=== PATIENT | female | born 1970 | race Caucasian/White ===

== ENCOUNTER 2016-05-01 18:29 | Emergency (ER) | payer BC ==
[~2016-05-01] VITALS: Ht 175.3 cm; Wt 63.8 kg
[2016-05-01 18:35] VITALS: TEMP 36.8; Ht 175.3 cm; Wt 63.8 kg
[2016-05-01] MEDS ORDERED: SODIUM CHLORIDE 0.9% 1000ML 1,000 ML IV STA (19:48)
--- NOTE | 2016-05-01 19:58 | EMERGENCY ROOM VISIT NOTE ---
History Report prepared by [place]etano: Felix Arrieta Under the Supervision of: Dr. Felix Martin M.D. First contact with patient: 19:07 Chief Complaint: DIZZY Stated Complaint: DIZZY, ANXIOUS, POSSIBLE UTI, APPETITE LOSS, INSOM Nursing Triage Summary: Patient ambulatory to triage, states "I had a UTI on 04/15/16. I was treated with bactrim. I got bacterial vaginosis and was treated with Flagyl. I don't think I ever got over the UTI. Now, I have a bunch of other symptoms. I have no pain. I am anxious but I can't eat. I am not nauseated but food tastes awful and I can't swallow it. I feel like my body intermittent gets flushed. I feel very dizzy and I am very shaky." Patient denies any difficulty with swallowing she is just repulsed to food; no sob. History of Present Illness The patient is a 45 year old female who presents to the Emergency Room with complaints of persistent dizziness beginning about 4 days ago. She notes on April 08 she had a UTI and was treated with Bactrim which resolved the UTI. 6 days ago she was diagnosed with bacterial vaginosis after experiencing burning sensations, and was prescribed Flagyl by a comp field case manager at [facility]. Despite minor improvements, she notes experiencing other symptoms such as dry throat, food tasting bad, shakiness and anxiousness, difficulty falling and staying asleep and waking in a panic, flushing, and tremors. She has also been sweaty with hot flashes at times. She denies having any fever, headache, chest pain, shortness of breath, or rashes or bites. She also denies any suicidal ideations. The patient finished her Flagyl 4 days ago and denies consuming alcohol with it. She denies having any thyroid problems. Source of History: patient, spouse/significant other Onset: 4 days ago Position: other (global) Quality: other (dizzy) Timing: other (persistent) Associated Symptoms: No SOB, No chest pain, No fevers, No headache, No rash Note: The patient notes having dry throat, food tasting bad, shakiness and anxiousness , difficulty falling and staying asleep and waking in a panic, flushing, and tremors. She denies any recent bites. Review of Systems See HPI for pertinent positives & negatives. A total of 10 systems reviewed and were otherwise negative. Past Medical & Surgical Old medical records were reviewed. Nurse's notes were reviewed and I agree with. Denies any significant past medical history. Specifically denies diabetes or thyroid problems or anxiety or mental health problems Family History No pertinent family history stated. Social History Smoking Status: Former Smoker Alcohol Use: none Drug Use: none Current/Historical Medications Scheduled Diphenhydramine-Acetaminophen (Tylenol Pm), 2 TAB PO HS Scheduled PRN Ondansetron Hcl (Zofran), 4 MG PO DIRECTED PRN for Nausea Allergies Coded Allergies: No Known Allergies (Verified , 05/01/16) Physical Exam Vital Signs Date Time Temp Pulse Resp B/P Pulse Ox O2 Delivery O2 Flow Rate FiO2 05/01/16 22:27 79 18 141/82 98 Room Air 05/01/16 20:27 73 18 147/87 100 Room Air 05/01/16 18:35 36.8 92 16 157/89 100 Room Air Physical Exam General: Well developed well nourished in no acute distress, breathing comfortably on room air. Normal speech. Non-ill appearing, middle aged female, mildly anxious. HEENT: Normal cephalic atraumatic. Pupils are equal round and reactive to light. Extraocular movements are intact. Oropharynx is pink with moist mucous membranes. No swelling of the mouth lips or tongue. Neck: Supple with a midline trachea. No meningeal signs or stiffness, no JVD or bruits. No Stridor. Chest: Clear to auscultation bilaterally. No wheezes or rhonchi. No increased work of breathing. Heart: regular rate and rhythm. Abdomen: Soft nontender, nondistended without rebound guarding or rigidity. Extremities: No cyanosis clubbing or edema. No calf tenderness or assymetry Spine/Back. Non tender to palpation. No CVA tenderness Skin: Good turgor without rashes. Neurologic exam: Cranial nerves two through 12 are intact. Motor and sensation are intact and symmetrical throughout. Finger to nose intact; questionable slight tremor. Psych: Normal thought process and affect. Denies suicidal ideations Medical Decision & Procedures ER Provider Diagnostic Interpretation: CT results as stated below per my review and radiologist interpretation: CT HEAD WITHOUT CONTRAST (CT) FINDINGS: No intra or extra-axial mass lesions are visualized. There is no CT evidence of acute cortical infarction. There is no evidence of midline shift. There is no acute hemorrhage. No calvarial fractures are visualized. There is a small calcification in the region the left cavernous sinus. This is not felt to be of acute clinical significance. There is no evidence of pathologic ventricular dilatation. There is no evidence of acute sinusitis IMPRESSION: No acute intracranial findings Electronically signed by: Zaki Saab M.D. 05/01/2016 8:37 PM Dictated Date/Time: 05/01/2016 8:35 PM Laboratory Results 05/01/16 20:13 Red Blood Count 4.22, Mean Corpuscular Volume 85.8, Mean Corpuscular Hemoglobin 29.4, Mean Corpuscular Hemoglobin Concent 34.3, Mean Platelet Volume 8.9, Neutrophils (%) (Auto) 71.8, Lymphocytes (%) (Auto) 19.0, Monocytes (%) (Auto) 8.5, Eosinophils (%) (Auto) 0.3, Basophils (%) (Auto) 0.3, Neutrophils # (Auto) 5.34, Lymphocytes # (Auto) 1.41, Monocytes # (Auto) 0.63, Eosinophils # (Auto) 0.02, Basophils # (Auto) 0.02 05/01/16 20:13 Test 05/01/16 20:13 White Blood Count 7.43 K/uL (4.8-10.8) Red Blood Count 4.22 M/uL (4.2-5.4) Hemoglobin 12.4 g/dL (12.0-16.0) Hematocrit 36.2 % (37-47) Mean Corpuscular Volume 85.8 fL (80-100) Mean Corpuscular Hemoglobin 29.4 pg (25-34) Mean Corpuscular Hemoglobin Concent 34.3 g/dl (32-36) Platelet Count 316 K/uL (130-400) Mean Platelet Volume 8.9 fL (7.4-10.4) Neutrophils (%) (Auto) 71.8 % Lymphocytes (%) (Auto) 19.0 % Monocytes (%) (Auto) 8.5 % Eosinophils (%) (Auto) 0.3 % Basophils (%) (Auto) 0.3 % Neutrophils # (Auto) 5.34 K/uL (1.4-6.5) Lymphocytes # (Auto) 1.41 K/uL (1.2-3.4) Monocytes # (Auto) 0.63 K/uL (0.11-0.59) Eosinophils # (Auto) 0.02 K/uL (0-0.5) Basophils # (Auto) 0.02 K/uL (0-0.2) RDW Standard Deviation 41.2 fL (36.4-46.3) RDW Coefficient of Variation 13.1 % (11.5-14.5) Immature Granulocyte % (Auto) 0.1 % Immature Granulocyte # (Auto) 0.01 K/uL (0.00-0.02) Urine Color YELLOW Urine Appearance CLOUDY (CLEAR) Urine pH 5.5 (4.5-7.5) Urine Specific [place] 1.004 (1.000-1.030) Urine Protein NEG (NEG) Urine Glucose (UA) NEG (NEG) Urine Ketones 3+ (NEG) Urine Occult Blood 1+ (NEG) Urine Nitrite NEG (NEG) Urine Bilirubin NEG (NEG) Urine Urobilinogen NEG (NEG) Urine Leukocyte Esterase NEG (NEG) Urine WBC (Auto) 1-5 /hpf (0-5) Urine RBC (Auto) 0-4 /hpf (0-4) Urine Hyaline Casts (Auto) 1-5 /lpf (0-5) Urine Epithelial Cells (Auto) >30 /lpf (0-5) Urine Bacteria (Auto) 1+ (NEG) Anion Gap 14.0 mmol/L (3-11) Est Creatinine Clear Calc Drug Dose 97.3 ml/min Estimated GFR () 115.6 Estimated GFR (Non- 99.7 BUN/Creatinine Ratio 9.3 (10-20) Calcium Level 9.1 mg/dl (8.5-10.1) Total Bilirubin 0.9 mg/dl (0.2-1) Aspartate Amino Transf (AST/SGOT) 20 U/L (15-37) Alanine Aminotransferase (ALT/SGPT) 24 U/L (12-78) Alkaline Phosphatase 36 U/L (45-117) Total Protein 7.0 gm/dl (6.4-8.2) Albumin 4.1 gm/dl (3.4-5.0) Globulin 2.9 gm/dl (2.5-4.0) Albumin/Globulin Ratio 1.4 (0.9-2) Thyroid Stimulating Hormone (TSH) 1.070 uIu/ml (0.300-4.500) Human Chorionic Gonadotropin, Qual NEG (NEG) Lyme Disease IgG Antibody NEG (NEG) Lyme Disease IgM Antibody NEG (NEG) Laboratory studies as stated above per my review. Medications Administered Medications (Trade) Dose Ordered Sig/Denita Route Start Time Stop Time Status Last Admin Dose Admin Sodium Chloride (Nss 1000ml) 1,000 ml @ 500 mls/hr Q2H STAT IV 05/01/16 19:48 05/01/16 21:47 DC 05/01/16 20:41 500 MLS/HR Lorazepam (Ativan 1MG Home Pack) 1 homepack NOW STAT PO 05/01/16 22:26 05/01/16 22:27 DC 05/01/16 22:34 1 HOMEPACK ECG Indication: other (dizzy) Rate (beats per minute): 71 Rhythm: normal sinus Findings: no acute ischemic change, no ectopy, other (normal QT interval) Comparison ECG Date: no prior available ED Course 1938: Past medical records reviewed. The patient was evaluated in room C2A, and a complete history and physical examination were performed. 1947: Ordered NSS 1,000 ml @ 500 mls/hr IV. 2225: Ordered Lorazepam 1 homepack PO. 2229: Upon reevaluation, the patient is hemodynamically stable. I discussed the results and treatment plan with the patient. She verbalized agreement of the treatment plan. The patient was discharged home. Medical Decision Differentials include anxiety, thyroid disease, electrolyte or metabolic abnormality, and infection. This patient comes in as described above . she's had several different complaints she feels very anxious. She does not have a history of anxiety. She looks well on exam and has a normal neurologic exam. She has been having hot hot flashes and some this may be hormonal changes related. I did an extensive workup on her including EKG, multiple blood testing and CAT scan of her head. CAT scan of her head is unremarkable and has no acute intracranial process seen. EKG does not she has acute cardiac event or arrhythmia. She has no acute electrolyte or metabolic abnormalities. Her TSH is within normal limits which makes thyroid disease unlikely. Her Lyme titer was negative. She was feeling better after receiving IV hydration here. We will give her home pack of Ativan that she can use one-half a milligram every 12 hours if needed. She said she just wanted something for sleep tonight. I told her that she needs to have close follow-up with her regular doctor within the next couple days. She has an appointment apparently on Thursday or Thursday this coming week. She was warned that this could make her drowsy and do not take before drinking, driving, working and she should return if: Worsening of symptoms, fever or chills, any new problems or concerns. The patient and her are happy with the plan and she was discharged to home. Impression Primary Impression: Dizziness Additional Impression: Anxiety Scribe Attestation The scribe's documentation has been prepared under my direction and personally reviewed by me in its entirety. I confirm that the note above accurately reflects all work, treatment, procedures, and medical decision making performed by me. Departure Information Dispostion Home / Self-Care Referrals Flori Stevenson, (PCP) Patient Instructions Anxiety Ch, Lorazepam Oral tablet, My [facility], Perimenopause Additional Instructions You were seen in the ED today for dizziness, anxiety, hot flashes, loss of appetite Lab work was performed and showed no signs of infection, no anemia, and normal functioning kidneys, liver and thyroid. You were also negative for Lyme disease and your urine was negative for infection on urinalysis, although further cultures are pending. We believe these symptoms are from a combination of your previous antibiotics, perimenopausal symptoms and anxiety. For relief, we have prescribed a short duration course of Ativan. Please take 0.5mg (a half tablet) when significantly anxious or before bed. Please do not take more than half a tablet every 12 hours. As this medication has sedating effects, please do not drink alcohol, drive, or perform duties requiring a high degree of concentration. We recommend follow up with your PCP in 1 week's time for re-assessment, especially if the symtpoms do not improve, or worsen. You have been examined and treated today on an emergency basis only. This is not a substitute for, or an effort to provide, complete comprehensive medical care. It is impossible to recognize and treat all injuries or illnesses in a single emergency department visit. It is therefore important that you make a follow up with your physician for close monitoring. Return to the ED immediately for worsening or persistent dizziness, vomiting, headache, fevers, chest pains, difficulty breathing, black or bloody stools, slurred speech, numbness, weakness, visual changes, worsening of your condition , or as needed. Problem Qualifiers
[2016-05-01] MEDS ORDERED: ONDA4TAB46 PO (20:06)
[2016-05-01] MEDS ORDERED: DIPH-437 PO (20:06)
[2016-05-01 20:25] LABS: BASO % 0.3 %; BASO ABS # 0.02 K/uL (0-0.2); COMPLETE YES; EOS % 0.3 %; HEMATOCRIT 36.2 % (37-47); IG% 0.1 %; LYMPH ABS # 1.41 K/uL (1.2-3.4); MEAN CELL VOLUME 85.8 fL (80-100); MEAN CORPUSCULAR HEMOGLOBIN 29.4 pg (25-34); MEAN CORPUSCULAR HGB CONC 34.3 g/dl (32-36); MEAN PLATELET VOLUME 8.9 fL (7.4-10.4); MONO % 8.5 %; NEUT % 71.8 %; PLATELET COUNT 316 K/uL (130-400); RED BLOOD COUNT 4.22 M/uL (4.2-5.4); WHITE BLOOD COUNT 7.43 K/uL (4.8-10.8)
[2016-05-01 20:28] LABS: URINE APPEARANCE CLOUDY (CLEAR); URINE BILIRUBIN NEG (NEG); URINE COLOR YELLOW; URINE EPITHELIAL CELL AUTO >30 /lpf (0-5); URINE NITRITE NEG (NEG); URINE PH 5.5 (4.5-7.5); URINE SPECIFIC GRAVITY 1.004 (1.000-1.030); UROBILINOGEN NEG (NEG); ZZUR CULT IF INDIC CLEAN CATCH YES
[2016-05-01 20:37] LABS: MANUAL MICROSCOPIC REQUIRED? NO; REVIEW REQ? NO
--- NOTE | 2016-05-01 20:38 | DIAGNOSTIC IMAGING REPORT ---
CT HEAD WITHOUT CONTRAST (CT) CLINICAL HISTORY: headache, mild tremor COMPARISON STUDY: No previous studies for comparison. TECHNIQUE: Axial CT of the brain is performed from the vertex to the skull base. IV contrast was not administered for this examination. CT DOSE: 601.98 mGy.cm FINDINGS: No intra or extra-axial mass lesions are visualized. There is no CT evidence of acute cortical infarction. There is no evidence of midline shift. There is no acute hemorrhage. No calvarial fractures are visualized. There is a small calcification in the region the left cavernous sinus. This is not felt to be of acute clinical significance. There is no evidence of pathologic ventricular dilatation. There is no evidence of acute sinusitis IMPRESSION: No acute intracranial findings Electronically signed by: Zaki Saab M.D. 05/01/2016 8:37 PM Dictated Date/Time: 05/01/2016 8:35 PM
[2016-05-01 20:44] LABS: BUN/CREATININE RATIO 9.3 (10-20); CALCIUM 9.1 mg/dl (8.5-10.1); CREATININE 0.72 mg/dl (0.60-1.20); POTASSIUM 3.4 mmol/L (3.5-5.1)
[2016-05-01 21:16] LABS: ALB/GLOB RATIO 1.4 (0.9-2); THYROID STIMULATING HORMONE 1.07 uIu/ml (0.300-4.500)
--- NOTE | 2016-05-01 21:35 | EMERGENCY ROOM VISIT NOTE ---
History First contact with patient: 19:07 Chief Complaint: DIZZY Stated Complaint: DIZZY, ANXIOUS, POSSIBLE UTI, APPETITE LOSS, INSOM Nursing Triage Summary: Patient ambulatory to triage, states "I had a UTI on 04/15/16. I was treated with bactrim. I got bacterial vaginosis and was treated with Flagyl. I don't think I ever got over the UTI. Now, I have a bunch of other symptoms. I have no pain. I am anxious but I can't eat. I am not nauseated but food tastes awful and I can't swallow it. I feel like my body intermittent gets flushed. I feel very dizzy and I am very shaky." Patient denies any difficulty with swallowing she is just repulsed to food; no sob. History of Present Illness The patient is a 45 year old female who presents to the Emergency Room with complaints of anxiety, hot flushes, poor appetite Apr 08, 2016 - patient had dysuria, urgency, frequency - went to urgent care - dipstick positive fo WBC - treated for UTI with Bactrim Apr 22, 2016 - urgency and frequency resolved, but ongoing burning - economics instructor assessed - treated for bacterial vaginosis with flagyl Apr 28, 2016 - no improvement of burning - returned to urgent care - BV resolved , treated for yeast infection with 1 tablet of fluconazole Since Apr 27, 2016 however, burning improved, but not resolved. Also feeling multiple new symptoms including nausea without vomiting. Loss of appetite with awful taste in mouth. Feels like there is a knot in her stomach. Dry throat requiring excessive water intake to swallow food/pills. Anxious, dizzy. Insomnia with disturbed sleep, waking up in panic. Hot flashes followed by shaking/tremors. Tingling in head and hands. Decreased concentration and inability to focus at work. No fevers. No URI symptoms, Some postnasal drainage. She took 2 Tylenol this afternoon, and went to urgent care, where they prescribed her some Zofran. Patient denies thoughts of self harm or suicidal ideation. She denies new/ excessive stressors at home or work. She denies tobacco or alcohol use. She denies family history of mental health problems. Fam hx : HTN in mom and dad, dad had stoke, uterine and ovarian history in other relatives Review of Systems See HPI for pertinent positives and negatives. A total of ten systems were reviewed and were otherwise negative. Social History Smoking Status: Former Smoker Current/Historical Medications Scheduled Diphenhydramine-Acetaminophen (Tylenol Pm), 2 TAB PO HS Scheduled PRN Ondansetron Hcl (Zofran), 4 MG PO DIRECTED PRN for Nausea Allergies Coded Allergies: No Known Allergies (Verified , 05/01/16) Physical Exam Vital Signs Date Time Temp Pulse Resp B/P Pulse Ox O2 Delivery O2 Flow Rate FiO2 05/01/16 22:27 79 18 141/82 98 Room Air 05/01/16 20:27 73 18 147/87 100 Room Air 05/01/16 18:35 36.8 92 16 157/89 100 Room Air Physical Exam GENERAL: alert, well appearing, thin, sitting in bed, mildly anxious, non-toxic HEAD: Normocephalic, atraumatic. No sinus tenderness. EYES: PERRL, EOMI, normal conjunctiva OROPHARYNX: no exudate, no erythema, lips, buccal mucosa, and tongue normal and mucous membranes are dry NECK: supple, no nuchal rigidity, no adenopathy, non-tender LUNGS: Clear to auscultation. Normal chest wall mechanics, good air entry. No crepitations, crackles, or wheezes HEART: no murmurs, S1 normal and S2 normal CHEST: No reproducible tenderness. ABDOMEN: abdomen soft, non-tender, normo-active bowel sounds, no masses, no rebound or guarding. BACK: Back is symmetrical on inspection, no deformities, no midline tenderness, no CVA tenderness. SKIN: Warm, pink, dry. No erythema, rashes, or bruising. EXTREMITIES: Grossly normal. Moving all 4 limbs, strength 5/5. No pitting edema. Calves non tender. NEURO: Alert, Ox3. No focal deficits. Normal sensorium, cranial nerves II-XII grossly intact, normal speech. PSYCH: Mood and affect appropriate. Medical Decision & Procedures ER Provider Diagnostic Interpretation: CT HEAD WITHOUT CONTRAST (CT) CLINICAL HISTORY: headache, mild tremor COMPARISON STUDY: No previous studies for comparison. TECHNIQUE: Axial CT of the brain is performed from the vertex to the skull base. IV contrast was not administered for this examination. CT DOSE: 601.98 mGy.cm FINDINGS: No intra or extra-axial mass lesions are visualized. There is no CT evidence of acute cortical infarction. There is no evidence of midline shift. There is no acute hemorrhage. No calvarial fractures are visualized. There is a small calcification in the region the left cavernous sinus. This is not felt to be of acute clinical significance. There is no evidence of pathologic ventricular dilatation. There is no evidence of acute sinusitis IMPRESSION: No acute intracranial findings Laboratory Results 05/01/16 20:13 Red Blood Count 4.22, Mean Corpuscular Volume 85.8, Mean Corpuscular Hemoglobin 29.4, Mean Corpuscular Hemoglobin Concent 34.3, Mean Platelet Volume 8.9, Neutrophils (%) (Auto) 71.8, Lymphocytes (%) (Auto) 19.0, Monocytes (%) (Auto) 8.5, Eosinophils (%) (Auto) 0.3, Basophils (%) (Auto) 0.3, Neutrophils # (Auto) 5.34, Lymphocytes # (Auto) 1.41, Monocytes # (Auto) 0.63, Eosinophils # (Auto) 0.02, Basophils # (Auto) 0.02 05/01/16 20:13 Test 05/01/16 20:13 White Blood Count 7.43 K/uL (4.8-10.8) Red Blood Count 4.22 M/uL (4.2-5.4) Hemoglobin 12.4 g/dL (12.0-16.0) Hematocrit 36.2 % (37-47) Mean Corpuscular Volume 85.8 fL (80-100) Mean Corpuscular Hemoglobin 29.4 pg (25-34) Mean Corpuscular Hemoglobin Concent 34.3 g/dl (32-36) Platelet Count 316 K/uL (130-400) Mean Platelet Volume 8.9 fL (7.4-10.4) Neutrophils (%) (Auto) 71.8 % Lymphocytes (%) (Auto) 19.0 % Monocytes (%) (Auto) 8.5 % Eosinophils (%) (Auto) 0.3 % Basophils (%) (Auto) 0.3 % Neutrophils # (Auto) 5.34 K/uL (1.4-6.5) Lymphocytes # (Auto) 1.41 K/uL (1.2-3.4) Monocytes # (Auto) 0.63 K/uL (0.11-0.59) Eosinophils # (Auto) 0.02 K/uL (0-0.5) Basophils # (Auto) 0.02 K/uL (0-0.2) RDW Standard Deviation 41.2 fL (36.4-46.3) RDW Coefficient of Variation 13.1 % (11.5-14.5) Immature Granulocyte % (Auto) 0.1 % Immature Granulocyte # (Auto) 0.01 K/uL (0.00-0.02) Urine Color YELLOW Urine Appearance CLOUDY (CLEAR) Urine pH 5.5 (4.5-7.5) Urine Specific [place] 1.004 (1.000-1.030) Urine Protein NEG (NEG) Urine Glucose (UA) NEG (NEG) Urine Ketones 3+ (NEG) Urine Occult Blood 1+ (NEG) Urine Nitrite NEG (NEG) Urine Bilirubin NEG (NEG) Urine Urobilinogen NEG (NEG) Urine Leukocyte Esterase NEG (NEG) Urine WBC (Auto) 1-5 /hpf (0-5) Urine RBC (Auto) 0-4 /hpf (0-4) Urine Hyaline Casts (Auto) 1-5 /lpf (0-5) Urine Epithelial Cells (Auto) >30 /lpf (0-5) Urine Bacteria (Auto) 1+ (NEG) Anion Gap 14.0 mmol/L (3-11) Est Creatinine Clear Calc Drug Dose 97.3 ml/min Estimated GFR () 115.6 Estimated GFR (Non- 99.7 BUN/Creatinine Ratio 9.3 (10-20) Calcium Level 9.1 mg/dl (8.5-10.1) Total Bilirubin 0.9 mg/dl (0.2-1) Aspartate Amino Transf (AST/SGOT) 20 U/L (15-37) Alanine Aminotransferase (ALT/SGPT) 24 U/L (12-78) Alkaline Phosphatase 36 U/L (45-117) Total Protein 7.0 gm/dl (6.4-8.2) Albumin 4.1 gm/dl (3.4-5.0) Globulin 2.9 gm/dl (2.5-4.0) Albumin/Globulin Ratio 1.4 (0.9-2) Thyroid Stimulating Hormone (TSH) 1.070 uIu/ml (0.300-4.500) Human Chorionic Gonadotropin, Qual NEG (NEG) Lyme Disease IgG Antibody NEG (NEG) Lyme Disease IgM Antibody NEG (NEG) Medications Administered Medications (Trade) Dose Ordered Sig/Denita Route Start Time Stop Time Status Last Admin Dose Admin Sodium Chloride (Nss 1000ml) 1,000 ml @ 500 mls/hr Q2H STAT IV 05/01/16 19:48 05/01/16 21:47 DC 05/01/16 20:41 500 MLS/HR Lorazepam (Ativan 1MG Home Pack) 1 homepack NOW STAT PO 05/01/16 22:26 05/01/16 22:27 DC 05/01/16 22:34 1 HOMEPACK ECG Indication: palpitations, weakness Rate (beats per minute): 71 Rhythm: normal sinus Findings: no acute ischemic change, no ectopy Comparison ECG Date: no prior available Medical Decision 45 year old female presented with dizziness, anxiety, hot flashes, loss of appetite The patient was evaluated in room C2. A complete history and physical exam was performed. Differentials considered included but were not limited to thyroid issues, UTI, anxiety, perimenopause, Lyme disease, intracranial abnormality, electrolyte abnormality, metabolic abnormality Patient was given 1L of IV normal saline was given to improve hydration status. EKG showed NSR without any signs of arrhythmia or ischemia Lab work was performed. CBC, BMP, LFT, and TSH were all within normal limits, except for borderline potassium and 3.4. Lyme serology was negative. CT showed no acute intracranial findings. Serum screen was negative for . Urinalysis showed evidence of contamination but also possibly a urinary infection. It was positive for occult blood and ketones. Urine cultures are pending. Likely diagnosis is UTI, perimenopausal symptoms, anxiety. As such, patient prescribed 0.5mg Ativan to be taken either before bed or PRN anxiety. She was warned of sedating effects and thus told not to drive or perform duties where a high degree of concentration is paramount, and was told to take them q 12 hours. She was advised for conservative management with Tylenol or Motrin for pain relief and increased oral intake to improve hydration status. She was also advised for early follow up with PCP Patient understands and agreeable with care plan. Patient discharged home well. Impression Primary Impression: Dizziness Additional Impressions: Anxiety Hypokalemia Departure Information Dispostion Home / Self-Care Condition GOOD Referrals Flori Stevenson DO (PCP) Patient Instructions [facility] Additional Instructions You were seen in the ED today for dizziness, anxiety, hot flashes, loss of appetite Lab work was performed and showed no signs of infection, no anemia, and normal functioning kidneys, liver and thyroid. You were also negative for Lyme disease and your urine was negative for infection on urinalysis, although further cultures are pending. We believe these symptoms are from a combination of your previous antibiotics, perimenopausal symptoms and anxiety. For relief, we have prescribed a short duration course of Ativan. Please take 0.5mg (a half tablet). Take half a tablet every 12 hours as needed for severe anxiety or prior to bed. Do not drive if taking. May cause drowsiness. Do not take if you are at work or doing any activity where being under the influence may be dangerous. Avoid medication with alcohol. We recommend follow up with your PCP in 1 week's time for re-assessment, especially if the symtpoms do not improve, or worsen. You have been examined and treated today on an emergency basis only. This is not a substitute for, or an effort to provide, complete comprehensive medical care. It is impossible to recognize and treat all injuries or illnesses in a single emergency department visit. It is therefore important that you make a follow up with your physician for close monitoring. Return to the ED immediately for worsening or persistent dizziness, vomiting, headache, fevers, chest pains, difficulty breathing, black or bloody stools, slurred speech, numbness, weakness, visual changes, worsening of your condition , or as needed. Problem Qualifiers
[2016-05-01 21:36] LABS: LYME DISEASE AB IGG NEG (NEG); LYME DISEASE AB IGM NEG (NEG)
[2016-05-01] MEDS ORDERED: ATIVAN 1MG HOMEPACK PO STA (22:26)
[2016-05-01 22:27] VITALS: BP 141/82; PULSE 79; O2SAT 98
[2016-05-01 22:38] LABS: PREG INTERNAL NEGATIVE QC NEG CLEAR BACKGROUND; PREG INTERNAL POSITIVE QC POS CONTROL LINE
== END 2016-05-01 22:44 | disposition home or self-care (01) ==
LOC: C.EDB 18:30 → C.EDC 22:44
DX: R42 Dizziness and giddiness (principal); F41.9 Anxiety disorder, unspecified; E87.6 Hypokalemia; Z82.49 Family history of ischemic heart disease and other diseases of the circulatory system; Z82.3 Family history of stroke; Z87.891 Personal history of nicotine dependence